=== PATIENT | female | born 1950 | race Caucasian/White ===

== ENCOUNTER 2018-04-09 21:13 | Emergency (ER) | payer MEDICARE ==
[2018-04-09 21:29] VITALS: TEMP 98.2
--- NOTE | 2018-04-09 22:07 | ED ---
Extremity Problem HPI - General Chief complaint: Extremity Problem,Nontraumatic Stated complaint: Cellulitis Time Seen by Provider: 04/09/18 21:47 Source: patient Mode of arrival: ambulatory Limitations: no limitations - History of Present Illness Initial comments: Patient is a 67-year-old female presenting for left leg discomfort. She states that she broke her ankle approximately 2 weeks ago and subsequently had cellulitis for which she is currently on Bactrim. She was on a [address] ride and noted that she then had a lump on the back of her left calf. She denies any chest pain or shortness of breath but is concern about DVT and decided to come in for further evaluation. - Related Data Home Medications Medication Instructions Recorded Confirmed No Known Home Medications 04/09/18 04/09/18 Allergies Allergy/AdvReac Type Severity Reaction Status Date / Time No Known Allergies Allergy Verified 04/09/18 21:29 Review of Systems ROS Statement: Those systems with pertinent positive or pertinent negative responses have been documented in the HPI. Constitutional: Negative for chills, fatigue and fever. HENT: Negative for congestion. Respiratory: Negative for chest tightness, shortness of breath and wheezing. Negative for cough Cardiovascular: Negative for chest pain and palpitations. Gastrointestinal: Negative for abdominal pain. Negative for abdominal distention , diarrhea, nausea and vomiting. Genitourinary: Negative for dysuria. Musculoskeletal: Negative for back pain, neck pain and neck stiffness. Positive for left lower leg swelling Skin: Positive for redness on the left foot Neurological: Negative for dizziness, speech difficulty, weakness and light- headedness. Psychiatric/Behavioral: Negative for agitation and confusion. Negative for anxiety ROS Other: All systems not noted in ROS Statement are negative. Past Medical History Past Medical History: Cancer, Diabetes Mellitus Additional Past Medical History / Comment(s): uterine cx History of Any Multi-Drug Resistant Organisms: None Reported Additional Past Surgical History / Comment(s): uterine cx,. removal of uterus. Past Psychological History: No Psychological Hx Reported Smoking Status: Never smoker Past Alcohol Use History: None Reported Past Drug Use History: None Reported General Exam - General Exam Comments Initial Comments: Constitutional: Pt is oriented to person, place, and time. Pt appears well- developed and well-nourished. No distress. HENT: Head: Normocephalic and atraumatic. Eyes: EOM are normal. Neck: Normal range of motion. Neck supple. Cardiovascular: Normal rate, regular rhythm, S1 normal, S2 normal and normal heart sounds. Exam reveals no gallop and no friction rub. No murmur heard. 2+ DP PT pulses on the left foot Pulmonary/Chest: Effort normal and breath sounds normal. No tachypnea and no bradypnea. No respiratory distress. No wheezes or rales noted. Abdominal: Soft. Bowel sounds are normal. Pt exhibits no shifting dullness, no distension, no pulsatile liver, no fluid wave, no abdominal bruit and no ascites. There is no tenderness. There is no rigidity, no rebound, no guarding, no tenderness at McBurney's point and negative Burton's sign. Musculoskeletal: Normal range of motion. Mild diffuse effusion of the left ankle and left foot. There is mild effusion on the posterior lateral aspect of the left calf Neurological: Pt is alert and oriented to person, place, and time. No cranial nerve deficit. Skin: Skin is warm and dry. No rash noted. Pt is not diaphoretic. There is mild erythema on the lateral aspect of the left foot which patient states has been there for the last week Psychiatric: Pt has a normal mood and affect. Pt behavior is normal. Thought content normal. Limitations: no limitations Course Vital Signs 04/09/18 04/09/18 21:24 23:29 Temperature 98.2 F Pulse Rate 62 70 Respiratory 16 19 Rate Blood Pressure 107/66 129/66 O2 Sat by Pulse 97 96 Oximetry Medical Decision Making - Medical Decision Making Lower extremity Doppler was performed to evaluate for DVT and was noted to be negative. It is suspected that the mass that the patient is feeling is very superficial and possibly secondary to a superficial thrombosis or musculoskeletal strain. Patient was advised to follow up with PCP in the next 1 -2 days which she was agreeable to. - Lab Data Result diagrams: 04/09/18 22:35 04/09/18 22:35 Lab Results 04/09/18 04/09/18 Range/Units 22:35 22:35 WBC 10.9 H (3.8-10.6) k/uL RBC 4.72 (3.80-5.40) m/uL Hgb 13.7 (11.4-16.0) gm/dL Hct 41.4 (34.0-46.0) % MCV 87.8 (80.0-100.0) fL MCH 29.0 (25.0-35.0) pg MCHC 33.1 (31.0-37.0) g/dL RDW 14.4 (11.5-15.5) % Plt Count 316 (150-450) k/uL Neutrophils % 68 % Lymphocytes % 20 % Monocytes % 9 % Eosinophils % 2 % Basophils % 1 % Neutrophils # 7.4 (1.3-7.7) k/uL Lymphocytes # 2.2 (1.0-4.8) k/uL Monocytes # 0.9 (0-1.0) k/uL Eosinophils # 0.2 (0-0.7) k/uL Basophils # 0.1 (0-0.2) k/uL Sodium 139 (137-145) mmol/L Potassium 4.3 (3.5-5.1) mmol/L Chloride 104 (98-107) mmol/L Carbon Dioxide 21 L (22-30) mmol/L Anion Gap 14 mmol/L BUN 21 H (7-17) mg/dL Creatinine 0.80 (0.52-1.04) mg/dL Est GFR (CKD-EPI)AfAm 88 (>60 ml/min/1.73 sqM) Est GFR (CKD-EPI)NonAf 76 (>60 ml/min/1.73 sqM) Glucose 129 H (74-99) mg/dL Calcium 9.5 (8.4-10.2) mg/dL Magnesium 1.9 (1.6-2.3) mg/dL Disposition Clinical Impression: Pain of left calf, Left ankle swelling Disposition: HOME SELF-CARE Condition: Good Instructions: Swollen Joint (ED) Is patient prescribed a controlled substance at d/c from ED?: No Referrals: Nonstaff,Physician [Primary Care Provider] - 1-2 days Time of Disposition: 23:17
--- NOTE | 2018-04-09 22:37 | US ---
EXAMINATION TYPE: US venous doppler duplex LE LT DATE OF EXAM: 04/09/2018 10:04 PM COMPARISON: NONE CLINICAL HISTORY: Pain. fx'd left ankle 2 wks ago, left pain/swelling, no prev dvt SIDE PERFORMED: left TECHNIQUE: The lower extremity deep venous system is examined utilizing real time linear array sonog namita with graded compression, doppler sonography and color-flow sonography. VESSELS IMAGED: External Iliac Vein (EIV) Common Femoral Vein Deep Femoral Vein Greater Saphenous Vein * Femoral Vein Popliteal Vein Small Saphenous Vein * Proximal Calf Veins (* superficial vessels) Left Leg: neg for LLE dvt IMPRESSION: Normal exam. No evidence of deep venous thrombosis in the left leg.
[2018-04-09 22:47] LABS: Basophils # (A) 0.1 k/uL (0-0.2); Basophils % (A) 1 %; Eosinophils # (A) 0.2 k/uL (0-0.7); Eosinophils % (A) 2 %; HCT 41.4 % (34.0-46.0); HGB 13.7 gm/dL (11.4-16.0); Lymphocytes # (A) 2.2 k/uL (1.0-4.8); Lymphocytes % (A) 20 %; MCHC 33.1 g/dL (31.0-37.0); MCV 87.8 fL (80.0-100.0); Mean Platelet Volume 7.6; Monocytes # (A) 0.9 k/uL (0-1.0); Monocytes % (A) 9 %; Neutrophils # (A) 7.4 k/uL (1.3-7.7); Neutrophils % (A) 68 %; Platelet Count 316 k/uL (150-450); RBC 4.72 m/uL (3.80-5.40); RDW 14.4 % (11.5-15.5); WBC 10.9 k/uL (3.8-10.6)
[2018-04-09 23:00] LABS: Calcium 9.5 mg/dL (8.4-10.2); Magnesium 1.9 mg/dL (1.6-2.3); Potassium 4.3 mmol/L (3.5-5.1)
[2018-04-09 23:30] VITALS: BP 129/66; PULSE 70; RESP 19
== END 2018-04-09 23:28 | disposition home or self-care (01) ==
LOC: EC 21:13
DX: M25.472 Effusion, left ankle (principal); M25.48 Effusion, other site; L53.9 Erythematous condition, unspecified; M25.475 Effusion, left foot; Z85.42 Personal history of malignant neoplasm of other parts of uterus; Z90.79 Acquired absence of other genital organ(s)
CPT/HCPCS: 36415; 80048; 83735; 85025; 99284